=== PATIENT | female | born 1965 | race Caucasian/White ===

== ENCOUNTER 2016-11-09 10:30 | Emergency (ER) | payer OTHER ==
[2016-11-09 11:28] LABS: BILIRUBIN NEGATIVE (NEGATIVE); BLOOD 2+ Ery/uL (NEGATIVE); COLOR YELLOW (YELLOW); GLUCOSE (U) NORMAL (NORMAL); KETONE (U) 1+ (SMALL) mg/dL (NEGATIVE); LEUKOCYTES TRACE Leu/uL (NEGATIVE); NITRITE NEGATIVE (NEGATIVE); PROTEIN 3+ mg/dL (NEGATIVE); SPECIFIC GRAVITY >=1.030 (1.001-1.030); UROBILINOGEN 0.2 mg/dL (0.2-1.0); pH 5.5 (5.0-9.0)
[2016-11-09 11:30] LABS: CLARITY HAZY (CLEAR)
[2016-11-09 11:37] LABS: AMORPHOUS URATES CRYSTALS TRACE; BACTERIA 1+; URINARY WBC 20-50
[2016-11-09 11:40] LABS: ALCOHOL (ETOH) MEDICAL NONE DETECTED
[2016-11-09 11:41] LABS: ALBUMIN 4.6 g/dL (3.5-5.0); BILIRUBIN - TOTAL 0.4 mg/dL (0.1-1.0); CREATININE 0.8 mg/dL (0.5-1.0); GLOBULIN (CALCULATION) 3.1 g/dL (2.2-4.2); MAGNESIUM 1.87 mg/dL (1.40-2.10); PHOSPHORUS 4.4 mg/dL (2.7-4.5); POTASSIUM 3.5 mmol/L (3.5-5.1); TOTAL PROTEIN 7.7 g/dL (6.4-8.3)
[2016-11-09 11:45] LABS: AMPHETAMINES NEGATIVE (NEGATIVE); BENZODIAZEPINES NEGATIVE (NEGATIVE); COCAINE NEGATIVE (NEGATIVE); MARIJUANA (THC) NEGATIVE (NEGATIVE)
[2016-11-09 11:46] LABS: BARBITURATES NEGATIVE (NEGATIVE); METHADONE NEGATIVE (NEGATIVE); TRICYCLIC ANTIDEPRESSANT NEGATIVE (NEGATIVE)
[2016-11-09 13:41] LABS: BASOPHIL 0.6 % (0-2); EOSINOPHIL 1.5 % (0-5); HCT 46.9 % (37.0-47.0); HGB 15.2 g/dl (12.5-16.0); LYMPHOCYTE 26.4 % (15-48); MCHC 32.4 g/dL (32.0-36.0); MCV 95.5 fL (78.0-100.0); MONOCYTE 7.7 % (0-12); MPV 11.2 fL (6.0-9.5); NEUTROPHIL 63.8 % (41-80); PLT 262 K/uL (150-400); RBC 4.91 M/uL (4.20-5.40); RDW 13.6 % (11.5-14.0); WBC 12.4 K/uL (4.0-10.5)
== END 2016-11-09 16:23 | disposition home or self-care (01) ==
LOC: FER 10:30
PROVIDERS: Internal Medicine
DX: R56.9 Unspecified convulsions (principal); N39.0 Urinary tract infection, site not specified; F17.210 Nicotine dependence, cigarettes, uncomplicated
CPT/HCPCS: 36415; 70450; 71010; 80053; 80305; 81001; 82150; 83690; 83735; 84100; 84484; 85025; 85651; 86140; G0480; J1953; J2060; J3411; J3475

== ENCOUNTER 2020-12-20 09:35 | Emergency (ER) | payer OTHER ==
[2020-12-20 10:55] LABS: BASOPHIL 0.8 % (0-2); EOSINOPHIL 0.1 % (0-5); HCT 49.6 % (37.0-47.0); HGB 16.7 g/dl (12.5-16.0); LYMPHOCYTE 11.4 % (15-48); MCH 30.8 pg (25.0-31.0); MCHC 33.7 g/dL (32.0-36.0); MCV 91.3 fL (78.0-100.0); MONOCYTE 4.4 % (0-12); MPV 10.4 fL (6.0-9.5); NEUTROPHIL 82.8 % (41-80); NRBC 0; PLT 233 K/uL (150-400); RBC 5.43 M/uL (4.20-5.40); RDW 12.3 % (11.5-14.0); WBC 7.7 K/uL (4.0-10.5)
[2020-12-20 11:15] LABS: ALBUMIN 3.8 g/dL (3.4-5.0); BILIRUBIN - TOTAL 0.5 mg/dL (0.2-1.0); BUN/CREAT RATIO (CALC) 15.6 RATIO; CREATININE 0.77 mg/dL (0.51-0.95); GLOBULIN (CALCULATION) 4.1 g/dL; POTASSIUM 3.8 mmol/L (3.5-5.1); TOTAL PROTEIN 7.9 g/dL (6.4-8.2)
[2020-12-20 12:25] LABS: CORONAVIRUS 2019 SARS-COV-2 NEGATIVE (NEGATIVE); INFLUENZA A NAA NEGATIVE (NEGATIVE)
[2020-12-20 13:28] LABS: BILIRUBIN NEGATIVE (NEGATIVE); BLOOD NEGATIVE Ery/uL (NEGATIVE); CLARITY CLEAR (CLEAR); COLOR YELLOW (YELLOW); GLUCOSE (U) NORMAL (NORMAL); LEUKOCYTES NEGATIVE Leu/uL (NEGATIVE); NITRITE NEGATIVE (NEGATIVE); PROTEIN 2+ mg/dL (NEGATIVE); SPECIFIC GRAVITY 1.015 (1.001-1.030); UROBILINOGEN 0.2 mg/dL (0.2-1.0); pH 8.5 (5.0-9.0)
[2020-12-20] MEDS ORDERED: ZOFRAN4 M1 PO (13:29)
[2020-12-20 13:37] LABS: BACTERIA TRACE
== END 2020-12-20 14:03 | disposition home or self-care (01) ==
LOC: FER 09:35
PROVIDERS: Emergency Medicine
DX: R11.2 Nausea with vomiting, unspecified (principal); R19.7 Diarrhea, unspecified; E86.0 Dehydration; J44.9 Chronic obstructive pulmonary disease, unspecified; Z20.822 Contact with and (suspected) exposure to COVID-19
CPT/HCPCS: 36415; 80053; 81001; 82150; 83690; 85025; J2405; J7030; U0002